=== PATIENT | male | born 1990 | race Caucasian/White ===

== ENCOUNTER 2023-03-11 06:41 | Emergency (ER) | payer OTHER, SELFPAY ==
--- NOTE | ~2023-03-11 | XR_ITS ---
EXAMINATION: XR first finger, LEFT CLINICAL INFORMATION: Hit left thumb with hammer COMPARISON: None available. TECHNIQUE: Three views of the left thumb. FINDINGS: There is no evidence of acute fracture or dislocation of the left thumb. Joint spaces are maintained. There is some soft tissue swelling seen about the distal phalanx. There is negative ulnar variance present. XR/XR finger LT min 2V IMPRESSION: No evidence of acute fracture or dislocation of the left thumb.
[2023-03-11 06:43] VITALS: BP 142/72; PULSE 85; RESP 18; TEMP 36.6; O2SAT 98; BMI 25.0
--- NOTE | 2023-03-11 07:26 | ED.EXTPRO ---
HPI - Extremity Problem General Chief complaint: Extremity Injury, Upper Stated complaint: finger inj Time Seen by Provider: 03/11/23 07:26 Source: patient Mode of arrival: ambulatory Limitations: no limitations History of Present Illness HPI Narrative: 32 yo male presents to the ER for evaluation of left thumb pain. He states he hit it with a hammer about a month ago. He states he pulled the 2 days ago. He states the base of the nail bed has been red, tender and firm for the last couple of days. He was able to express purulent fluid from it 2 days ago but it refilled back up. He has been using warm compresses to the area with minimal relief. He has full range of motion of the thumb. No sensory deficits. No fevers or chills. He does not use IV drugs. MD Complaint: extremity pain Onset (ago): week(s) Pain Consistency: constant Location: left and upper extremity Quality: aching Radiation: distal Relieving factors: rest Exacerbating factors: palpation Associated symptoms: denies other symptoms Related Data Previous Rx's Medication Instructions Recorded amoxicillin 875 mg-potassium 1 tab PO BID #14 tabs 03/11/23 clavulanate 125 mg tablet ibuprofen 600 mg tablet 600 mg PO Q8H PRN pain #14 tabs 03/11/23 Allergies Allergy/AdvReac Type Severity Reaction Status Date / Time No Known Allergies Allergy Unverified 07/04/20 15:53 Review of Systems Review of Systems: Yes all other systems are reviewed and are negative [facility] Social History Social History Advance Directives: No Advance Directives Information Provided: No Physical Exam Vital Signs: Vital Signs: Last Vital Signs Temp 98 F 03/11/23 06:43 Pulse 85 03/11/23 06:43 Resp 18 03/11/23 06:43 BP 142/72 H 03/11/23 06:43 Pulse Ox 98 03/11/23 06:43 O2 Del Method Room Air 03/11/23 06:43 BMI result Body Mass Index 25.0 Appearance: Alert. Oriented X3. No acute distress. HEENT: normal inspection CVS: Normal heart rate and rhythm. Pulses normal. Respiratory: No respiratory distress. Skin: Skin warm and dry. Normal skin color. Normal skin turgor. No rashes. Extremities: Left thumb with nailbed irregularity use, erythema, warmth, tenderness of the proximal nail bed, worse medially than laterally. No fluctuant area, it is indurated. Irregular piece of nail growing from the medial aspect. Full range of motion of the thumb. Neuro: Oriented X 3. No motor deficit. No sensory deficit. Medical Decision Making Medical Decision Making [facility] Narrative: 32-year-old male presents to the ER for evaluation of left thumb pain after hammer injury a month ago. He pulled the nail off 2 days ago. His exam is consistent with a paronychia. The area is indurated and erythematous. It is not indurated. No window to incised and drained today. Will start on any antibiotics and encourage him to continue warm soaks. X-ray does not show any acute fractures. Encouraged follow-up with his primary care doctor or hand specialist. Stable for discharge. Differential Diagnosis Differential Diagnoses: The differential diagnosis associated with the presentation includes Paronychia, cellulitis, distal phalynx fracture Independent Interpretation I performed an independent interpretation of an: Plain X-Ray Interpretation: normal thumb, no fx Radiology Impression Discussion of test interpretation with radiology: I have reviewed the radiologist's reading. Radiologist Impression: EXAMINATION: XR first finger, LEFT CLINICAL INFORMATION: Hit left thumb with hammer? COMPARISON: None available.? TECHNIQUE: Three views of the left thumb. FINDINGS: There is no evidence of acute fracture or dislocation of the left thumb. Joint spaces are maintained. There is some soft tissue swelling seen about the distal phalanx. There is negative ulnar variance present.? XR/XR finger LT min 2V IMPRESSION: No evidence of acute fracture or dislocation of the left thumb. Prescription Management I considered prescription management with: Pain Medication and Antibiotic Critical Care Time Critical Care Time Critical Care Time: No Discharge Plan Discharge Clinical Impression: Acute paronychia of left thumb Patient Disposition: Home, Self-Care Instructions: Paronychia (ED) Additional Instructions: Take the prescribed antibiotic as directed, complete the entire course and do not miss any doses Use warm soapy soaks to the thumb several times per day. If you develop new or worsening symptoms call 911 or come back to the ER for further evaluation. Prescriptions: New amoxicillin-pot clavulanate 875-125 mg tablet 1 tab PO BID Qty: 14 0RF ibuprofen 600 mg tablet 600 mg PO Q8H PRN (Reason: pain) Qty: 14 0RF Referrals: [facility] [place] [facility] [Provider Group] (Left thumb paronychia, status post trauma, fingernail loss) Interventions: ED Discharge Assessment Last Done: 03/11/23 08:47 Discharge Date/Time: 03/11/23 08:47
== END 2023-03-11 08:47 | disposition home or self-care (01) ==
PROVIDERS: Emergency Provider Emergency Medicine
DX: L03.012 Cellulitis of left finger (principal); M79.645 Pain in left finger(s); Z79.899 Other long term (current) drug therapy
CPT/HCPCS: 73140; 99282; 99283

== ENCOUNTER 2024-08-06 16:36 | Emergency (ER) | payer OTHER, SELFPAY ==
[2024-08-06 16:38] VITALS: BP 114/70; PULSE 70; RESP 16; TEMP 36.9; O2SAT 98; BMI 23.7
[2024-08-06 16:54] LABS: MANUAL DIFF FLAG NO
[2024-08-06 16:57] LABS: Basophils Absolute Auto 0.1 X10*3/uL (0.0-0.2); Basophils Percent Auto 0.7 % (0-2); Eosinophils Absolute Auto 0.2 X10*3/uL (0.0-0.4); Eosinophils Percent Auto 2.1 % (0-4); Hematocrit 42.4 % (42.0-52.0); Hemoglobin 14.3 g/dl (14.0-18.0); Imm Gran Abs Auto 0.04 X10*3/uL (0.00-0.03); Imm Gran Pct Auto 0.4 % (0.0-0.4); Lymphocytes Absolute Auto 3.6 X10*3/uL (1.2-4.9); Lymphocytes Percent Auto 34.1 % (20-40); Mean Corpuscular HGB Conc 33.7 g/dl (31.0-36.0); Mean Corpuscular Hemoglobin 30.5 pg (27.0-33.0); Mean Corpuscular Volume 90.4 fL (80.0-98.0); Mean Platelet Volume 9.8 fL (9.4-12.4); Neutrophils Absolute Auto 5.7 x10*3/uL (2.0-8.3); Neutrophils Percent Auto 53.7 % (45-73); Platelet Count 251 X10*3/uL (160-400); Red Blood Count 4.69 X10*6/uL (4.60-5.80); Red Cell Distribution Width 12.2 % (11.0-16.0); White Blood Count 10.7 X10*3/uL (4.8-10.8)
[2024-08-06 17:16] LABS: Alanine Aminotransferase 11 U/L (0-40); Albumin Level 4.3 g/dL (3.5-5.0); Alkaline Phosphatase 51 U/L (39-117); Anion Gap 11 (12-20); Aspartate Amino Transferase 12 U/L (5-37); Bilirubin Total 0.8 mg/dL (0.0-1.0); Blood Urea Nitrogen 9 mg/dL (9-16); C Reactive Protein < 0.10 mg/dL (< or = 0.50); Calcium 9.6 mg/dL (8.4-10.2); Carbon Dioxide 26 mmol/L (22-29); Chloride 109 mmol/L (96-108); Estimated Glomerular Filt Rate > 60; Glucose Random 81 mg/dL (60-115); Potassium 3.9 mmol/L (3.3-5.1); Sodium 142 mmol/L (135-145); Total Protein 6.5 g/dL (6.5-8.0)
--- NOTE | 2024-08-06 17:21 | ED_ITS ---
HPI - Skin/Abscess/Foreign Bdy General Chief complaint: Skin/Abscess/Foreign Body Stated complaint: ?Cyst Time Seen by Provider: 08/06/24 17:52 Source: patient Mode of arrival: ambulatory Limitations: no limitations History of Present Illness HPI narrative: 33 yo male, without significant PMH. Presents with 6 x days of what he thinks was a pimple possibly to his lumbar spine area, with worsening discomfort and increasing in size. Denies recent tick or insect bites that he is aware of. Denies any N/V/D/fevers. Denies IVDU, recent travel. Denies SOB. Negative for recent injury to site. MD complaint: abscess/boil Onset (ago): day(s) Relieving factors: cold therapy Associated symptoms: denies other symptoms Related Data Previous Rx's ?Medication ?Instructions ?Recorded amoxicillin 875 mg-potassium 1 tab PO BID #14 tabs 03/11/23 clavulanate 125 mg tablet ibuprofen 600 mg tablet 600 mg PO Q8H PRN pain #14 tabs 03/11/23 Allergies Allergy/AdvReac Type Severity Reaction Status Date / Time No Known Allergies Allergy Verified 08/06/24 16:39 COUNTS INCLUDE 234 BEDS AT THE [facility] Social History Social History Advance Directives: No Advance Directives Information Provided: No Physical Exam 2 Vital Signs: Vital Signs: Last Vital Signs Temp 98.5 F 08/06/24 18:50 Pulse 70 08/06/24 18:50 Resp 16 08/06/24 18:50 BP 114/70 08/06/24 18:50 Pulse Ox 98 08/06/24 18:50 O2 Del Method Room Air 08/06/24 18:50 BMI result Body Mass Index 23.7 Appearance: Alert. Oriented X3. No acute distress. Head: normocephalic, atraumatic. Eyes: Pupils equal, round and reactive to light. ENT: Pharynx normal. No tonsillar swelling or exudate. Neck: Normal inspection. Neck supple. CVS: Normal heart rate and rhythm. Pulses normal. Respiratory: No respiratory distress. Breath sounds normal. Abdomen: Soft and nontender. +BS x4 Skin: Skin warm and dry. Normal skin color. Normal skin turgor. No rashes. Localized erythematous, tender fluctuant area to lumbar spine approx 2x3cm Extremities: No lower extremity edema. No joint swelling. Neuro/psych: Oriented X 3. grossly normal, nonfocal. Normal speech and cognition. Skin: General skin exam: fluctuance (small localized area to lumbar spine) Course Course Course Narrative: This is a Rapid Medical Examination (RME) performed by Jonathan Joyner PA-C in triage. Full HPI, ROS, assessment and treatment plan per primary provider in the Main ED. 33 yo male here for eval of pimple on back first noticed 6 days ago. admits the area is increasing in size. applying warm compresses without improvement. denies fever/ chills or drainage from the area. Plan: further eval in back, basic labs, possible i&d Medical Decision Making Medical Decision Making MDM Narrative: 33 yo male, without significant PMH. Presents with 6 x days of what he thinks was a pimple possibly to his lumbar spine area, with worsening discomfort and increasing in size. Localized fluctuant area to to lumbar spine, middle. Afebrile. Area incised and drained for small amount purulent drainage. Minimal signs of surrounding cellulitis. Localized, no indication for abx at this time. No evidence of tick bite, insect bite. Stable for discharge home. Differential Diagnosis Differential Diagnoses: The differential diagnosis associated with the presentation includes cellulitis, tick bite/infection, insect bite, abscess, cyst, foliculitis Lab Data [facility] Lab Attestation statement: I reviewed the patient's lab results. no leukocytosis, no metabolic derangements 08/06/24 16:49 08/06/24 16:49 Labs: Lab Results 08/06/24 Range/Units 16:49 WBC 10.7 (4.8-10.8) X10*3/uL RBC 4.69 (4.60-5.80) X10*6/uL Hgb 14.3 (14.0-18.0) g/dl Hct 42.4 (42.0-52.0) % MCV 90.4 (80.0-98.0) fL MCH 30.5 (27.0-33.0) pg MCHC 33.7 (31.0-36.0) g/dl RDW 12.2 (11.0-16.0) % Plt Count 251 (160-400) X10*3/uL MPV 9.8 (9.4-12.4) fL Immature Gran % (Auto) 0.4 (0.0-0.4) % Neut % (Auto) 53.7 (45-73) % Lymph % (Auto) 34.1 (20-40) % [place] % (Auto) 9.0 (2-11) % Eos % (Auto) 2.1 (0-4) % Baso % (Auto) 0.7 (0-2) % Lymph # (Auto) 3.6 (1.2-4.9) X10*3/uL [place] # (Auto) 1.0 (0.1-1.2) X10*3/uL Eos # (Auto) 0.2 (0.0-0.4) X10*3/uL Baso # (Auto) 0.1 (0.0-0.2) X10*3/uL Abs Immat Gran (auto) 0.04 H (0.00-0.03) X10*3/uL Absolute Neuts (auto) 5.7 (2.0-8.3) x10*3/uL Absolute Nucleated RBC 0.000 (0.0-0.012) X10*3/uL Nucleated RBC % (auto) 0.0 (0.0-0.2) /100WBC ESR 1 (0-15) MM/HR Sodium 142 (135-145) mmol/L Potassium 3.9 (3.3-5.1) mmol/L Chloride 109 H (96-108) mmol/L Carbon Dioxide 26 (22-29) mmol/L Anion Gap 11 L (12-20) BUN 9 (9-16) mg/dL Creatinine 0.83 (0.5-1.4) mg/dL Estim Creat Clear Calc 104.0 Estimated GFR > 60 Random Glucose 81 (60-115) mg/dL Calcium 9.6 (8.4-10.2) mg/dL Total Bilirubin 0.8 (0.0-1.0) mg/dL AST 12 (5-37) U/L ALT 11 (0-40) U/L Alkaline Phosphatase 51 (39-117) U/L C-Reactive Protein < 0.10 (< or = 0.50) mg/dL Total Protein 6.5 (6.5-8.0) g/dL Albumin 4.3 (3.5-5.0) g/dL Prescription Management I considered prescription management with: Pain Medication and Antibiotic Procedures Abscess I/D Site: back (lumbar) Sedation/analgesia: none Local Anesthetic: lidocaine 1% and with epi Amount of anesthesia used (mL): 0.3 Technique: incised with blade Sent for culture/gram staining?: No Irrigation: Yes Packing used?: none Discharge Plan Discharge Clinical Impression: Abscess of skin or subcutaneous tissue Patient Disposition: Home, Self-Care Instructions: Abscess Incision and Drainage (DC) Additional Instructions: Use warm compresses several times per day Change the dressing as needed If you develop new or worsening symptoms call 911 or come back to the ER for further evaluation. Prescriptions: No Action amoxicillin-pot clavulanate 875-125 mg tablet 1 tab PO BID Qty: 14 0RF ibuprofen 600 mg tablet 600 mg PO Q8H PRN (Reason: pain) Qty: 14 0RF Interventions: ED Discharge Assessment Last Done: 08/06/24 18:50 Discharge Date/Time: 08/06/24 18:50 Print Language: Kyr[place]
[2024-08-06 17:36] LABS: Erythrocyte Sedimentation Rate 1 MM/HR (0-15)
[2024-08-06 18:50] VITALS: BP 114/70; PULSE 70; RESP 16; TEMP 36.9; O2SAT 98
== END 2024-08-06 18:50 | disposition home or self-care (01) ==
PROVIDERS: Physician Assistant Medical; Emergency Provider Emergency Medicine
DX: L02.212 Cutaneous abscess of back [any part, except buttock and flank] (principal); Z79.899 Other long term (current) drug therapy
CPT/HCPCS: 10060; 36415; 80053; 85025; 85652; 86140; 99282; 99284